=== PATIENT | male | born 1990 | race Caucasian/White ===

== ENCOUNTER 2018-02-20 20:08 | Emergency (ER) | payer SELFPAY ==
[~2018-02-20] VITALS: Ht 185.4 cm; Wt 86.1 kg
[~2018-02-20 20:08] MED LIST: AMOX-291 PO
[2018-02-20 20:27] VITALS: BP 147/97
[2018-02-20] MEDS ORDERED: DIPH,PERTUSS(ACELL),TET VAC/PF 0.5 ML IM-VACC ONE ×2 (20:30→21:03)
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
--- NOTE | 2018-02-20 21:34 | NUR ---
Patient/Caregiver given discharge instructions and they have confirmed that they understand the instructions. Patient ambulatory with steady gait.
== END 2018-02-20 21:36 | disposition home or self-care (01) ==
LOC: ED 21:00
DX: S61.531A Puncture wound without foreign body of right wrist, initial encounter (principal); F17.210 Nicotine dependence, cigarettes, uncomplicated; W46.1XXA Contact with contaminated hypodermic needle, initial encounter; Y93.89 Activity, other specified; Y99.8 Other external cause status; Y92.009 Unspecified place in unspecified non-institutional (private) residence as the place of occurrence of the external cause
CPT/HCPCS: 36415; 86705; 86706; 86803; 87340; 87806; 99283; G0475

== ENCOUNTER 2018-06-09 09:25 | Emergency (ER) | payer MEDICAID ==
[~2018-06-09] VITALS: Ht 185.4 cm; Wt 84.0 kg
[2018-06-09 09:31] VITALS: BP 134/78
--- NOTE | 2018-06-09 10:52 | NUR ---
PT TO ROOM FROM MARYJO PUENTES AT BEDSIDE.
== END 2018-06-09 11:42 | disposition home or self-care (01) ==
LOC: ED 11:30
DX: S93.402A Sprain of unspecified ligament of left ankle, initial encounter (principal); W18.30XA Fall on same level, unspecified, initial encounter; Y93.56 Activity, jumping rope; Y92.009 Unspecified place in unspecified non-institutional (private) residence as the place of occurrence of the external cause; Y99.8 Other external cause status
CPT/HCPCS: 99283

== ENCOUNTER 2018-06-15 19:08 | Emergency (ER) | payer MEDICAID ==
[~2018-06-15] VITALS: Ht 185.4 cm; Wt 85.4 kg
[2018-06-15 19:23] VITALS: BP 129/84
[2018-06-15] MEDS ORDERED: METHADONE PO (19:50)
--- NOTE | 2018-06-15 19:53 | NUR ---
Offered to SHIRIN wrap pt's ankle, pt elected to do it himself at home. Patient/Caregiver given discharge instructions and they have confirmed that they understand the instructions. Patient ambulatory with steady gait.
== END 2018-06-15 19:55 | disposition home or self-care (01) ==
LOC: ED 19:45
DX: G89.11 Acute pain due to trauma (principal); M25.572 Pain in left ankle and joints of left foot; F17.200 Nicotine dependence, unspecified, uncomplicated; X58.XXXA Exposure to other specified factors, initial encounter; Y93.89 Activity, other specified; Y92.89 Other specified places as the place of occurrence of the external cause; Y99.8 Other external cause status
CPT/HCPCS: 99281

== ENCOUNTER 2019-03-27 12:08 | Emergency (ER) | payer MEDICAID ==
[~2019-03-27] VITALS: Ht 185.4 cm; Wt 83.6 kg
[~2019-03-27 12:08] MED LIST changes: +METHADONE PO
[2019-03-27 12:11] VITALS: BP 132/82
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
[2019-03-27] MEDS ORDERED: OXYcodone/APAP 5/325MG TABLET ONE (13:20)
--- NOTE | 2019-03-27 13:22 | NUR ---
PT MEDICATED PER ORDERS.
--- NOTE | 2019-03-27 13:22 | NUR ---
Patient/Caregiver given discharge instructions and they have confirmed that they understand the instructions. Patient ambulatory with steady gait.
[2019-03-27] MEDS ORDERED: OXYcodone/APAP 5/325MG TABLET PO ONE (13:30)
== END 2019-03-27 13:24 | disposition home or self-care (01) ==
LOC: ED 13:00
DX: K08.89 Other specified disorders of teeth and supporting structures (principal); F17.200 Nicotine dependence, unspecified, uncomplicated
CPT/HCPCS: 99283

== ENCOUNTER 2020-04-03 14:40 | Emergency (ER) | payer MEDICAID ==
[~2020-04-03] VITALS: Ht 185.4 cm; Wt 82.3 kg
[2020-04-03 14:44] VITALS: BP 122/82
--- NOTE | 2020-04-03 15:16 | NUR ---
[employer] SECONDARY PROFESSIONAL: PT TO ROOM FROM LOBBY.
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
== END 2020-04-03 17:00 | disposition home or self-care (01) ==
LOC: ED 16:30
DX: S60.012A Contusion of left thumb without damage to nail, initial encounter (principal); W23.0XXA Caught, crushed, jammed, or pinched between moving objects, initial encounter; Y93.89 Activity, other specified; Y92.098 Other place in other non-institutional residence as the place of occurrence of the external cause; Y99.8 Other external cause status
CPT/HCPCS: 99283

== ENCOUNTER 2020-04-14 20:51 | Emergency (ER) | payer MEDICAID ==
[~2020-04-14] VITALS: Ht 185.4 cm; Wt 82.9 kg
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
[2020-04-14] MEDS ORDERED: IBUPROFEN 800 MG TABLET ONE (21:56)
[2020-04-14] MEDS ORDERED: METHOCARBAMOL 750 MG TABLET ONE (21:56)
[2020-04-14] MEDS ORDERED: METHOCARBAMOL 750 MG TABLET PO ONE (22:00)
[2020-04-14] MEDS ORDERED: IBUPROFEN 800 MG TABLET PO ONE (22:00)
[2020-04-14 22:31] VITALS: BP 126/85
== END 2020-04-14 23:00 | disposition home or self-care (01) ==
LOC: ED 21:25
DX: S39.012A Strain of muscle, fascia and tendon of lower back, initial encounter (principal); M54.42 Lumbago with sciatica, left side; F17.210 Nicotine dependence, cigarettes, uncomplicated; X58.XXXA Exposure to other specified factors, initial encounter; Y93.89 Activity, other specified; Y92.89 Other specified places as the place of occurrence of the external cause; Y99.8 Other external cause status
CPT/HCPCS: 72110; 99284; 99406; J7512

== ENCOUNTER 2020-09-15 21:03 | Emergency (ER) | payer MEDICAID ==
[~2020-09-15] VITALS: Ht 185.4 cm; Wt 82.9 kg
--- NOTE | 2020-09-15 21:26 | NUR ---
pt presents to ed with c/o R hand swelling after dropping a hammer on it at work. pt also states r eye pain, states "feels like a stye". redness and swelling noted to R eye, some bruising/swelling noted to L hand, cms intact, vss, nadn.
--- NOTE | 2020-09-15 21:59 | NUR ---
geena Madrid at bedside for eval
--- NOTE | 2020-09-15 22:01 | NUR ---
pt taken to xr
[2020-09-15 22:58] VITALS: BP 122/83
--- NOTE | 2020-09-15 23:31 | NUR ---
pt educated on dc instructions and prescription, verbalized understanding. ambulatory to dc desk with steady gait. no ocmplaints at time of discharge.
== END 2020-09-15 23:40 | disposition home or self-care (01) ==
LOC: ED 21:33
DX: S60.222A Contusion of left hand, initial encounter (principal); H00.012 Hordeolum externum right lower eyelid; F17.210 Nicotine dependence, cigarettes, uncomplicated; X58.XXXA Exposure to other specified factors, initial encounter; Y93.89 Activity, other specified; Y92.009 Unspecified place in unspecified non-institutional (private) residence as the place of occurrence of the external cause; Y99.8 Other external cause status
CPT/HCPCS: 99406